=== PATIENT | female | born 1940 | race Caucasian/White ===

== ENCOUNTER → 2016-11-26 | Outpatient (CLI) | payer MEDICARE, OTHER ==
--- NOTE | 2016-11-26 11:36 | KCIC ---
PROCEDURE MR of the left knee HISTORY Left knee pain. Stiffness. Swelling. Symptoms for a few months. TECHNIQUE Routine multiplanar sequences are obtained. COMPARISON None FINDINGS Degenerative tear of the medial meniscus. Mild subluxation of the medial meniscus from the medial joint compartment. Degenerative tear of the lateral meniscus Anterior and posterior cruciate ligaments are intact. Medial collateral ligament intact. Iliotibial band unremarkable. Fibular collateral ligament, biceps femoris tendon and popliteus tendon are intact. Extensor mechanism is intact. Large joint effusion. No evidence of osteochondral loose body. 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 Mild lateral compartment chondromalacia. Patellofemoral articular cartilage appears intact. Focal full-thickness articular cartilage defect at the posterior medial femoral condyle measures 7 millimeters AP by 7 millimeters wide. Small low signal structure identified in the posterior intercondylar notch. This is less well-defined and demonstrates more intermediate signal than would be expected for a loose cartilage fragment or loose body, but that is still considered. Minimal subchondral marrow edema at the central femoral trochlea. No acute fracture or aggressive bone destruction. Mild soft tissue edema or contusion around the knee. IMPRESSION 1. Medial meniscal tear. 2. Lateral meniscal tear. 3. Small full-thickness articular cartilage defect at the posterior medial femoral condyle. Small structure identified in the posterior intercondylar notch, possibly a displaced loose cartilage fragment or body, but not certain. Electronically signed by: Valdez Holman MD (November 26, 2016 11:35:23)
== END | disposition home or self-care (01) ==
LOC: KCIC MRI 08:22
PROVIDERS: ATTEND Family Medicine
DX: M25.562 Pain in left knee (principal)
CPT/HCPCS: 73721

== ENCOUNTER → 2017-01-04 | Day surgery (SDC) | payer MEDICARE, OTHER ==
[~2017-01-04] VITALS: Ht 157.5 cm; Wt 54.0 kg
[~2017-01-04] MED LIST: ANAS1TAB3 PO; BUPIVACAINE 0.5% 50 ML VIAL. ONE; CALC500T30 PO; CHOL500016 PO; DEXAMETHASONE SOD PHOS 20 MG/5 ML VIAL. ONE; FAMOTIDINE 20 MG/2 ML VIAL ONE; GLUC1TAB33 PO; HYDR-965 PO; HYDROmorphone 2 MG/ML VIAL IV PRN; IV RINGERS,LACTATED 1000ML 1,000 ML IV SCH; LIDOCAINE 1% 1 ML SYRINGE. ID PRN; LIDOCAINE 2% PF Vial for OR 5 ML VIAL. ONE; MIDAZOLAM HCL/PF 2 MG/2 ML VIAL. ONE; MONT10TA6 PO; MORPHINE SULFATE 2 MG/ML DISP.SYRIN. IV PRN; MULT-460 PO; ONDANSETRON PF 4 MG/2 ML VIAL. IV PRN; ONDANSETRON PF 4 MG/2 ML VIAL. ONE; PROCHLORPERAZINE 10 MG/2 ML VIAL. IV PRN; PROPOFOL 20 ML IV ONE; SEVOFLURANE 31 TO 60 MINUTES. IH ONE; TRIA15OI9 TP; fentaNYL PF VIAL 100 MCG/2 ML VIAL IV PRN; fentaNYL PF VIAL 100 MCG/2 ML VIAL ONE
[2017-01-04 13:24] LABS: BASO % 0 % (0-3); EOS % 2 % (0-3); HEMATOCRIT 39.3 % (36.0-47.0); HEMOGLOBIN 13.3 g/dL (12.0-15.5); LYMPH # 1.5 x10^3/uL (1.0-4.8); LYMPH % 32 % (24-48); MEAN CORPUSCULAR HEMOGLOBIN 30 pg (25-35); MEAN CORPUSCULAR HGB CONC 34 g/dL (31-37); MEAN CORPUSCULAR VOLUME 88 fL (79-100); MONO % 9 % (0-9); NEUT % 57 % (31-73); PLATELET COUNT 181 x10^3/uL (140-400); RED BLOOD COUNT 4.46 x10^6/uL (3.50-5.40); RED CELL DISTRIBUTION WIDTH 13.4 % (11.5-14.5); WHITE BLOOD COUNT 4.8 x10^3/uL (4.0-11.0)
--- NOTE | 2017-01-04 14:28 | DISCH ---
DISCHARGE INSTRUCTIONS Condition on Discharge Condition on Discharge: Stable Activity After Discharge Activity Instructions for Disc: Other, see below Other activity instructions: advance activity as tolerated Weight Bearing Status after Di: As tolerated Diet after Discharge Diet after Discharge: Regular Wound Incision Care Wound/Incision Care: Ice to area for comfort, Keep wound elevated, Change dressing Other wound/incision instructi: remove dressing in 2 days may then shower Contacting the DR. after DC Call your doctor for: Concerns you may have Follow-Up Follow up with: Aileen 10-14 days TASHI NAIDU MD Jan 04, 2017 14:28
[2017-01-04 16:23] VITALS: BP 108/76
--- NOTE | 2017-01-05 10:01 | OP ---
DATE OF SURGERY: 01/04/2017 PREOPERATIVE DIAGNOSIS: Medial and lateral meniscal tears. POSTOPERATIVE DIAGNOSIS: Medial and lateral meniscal tears. PROCEDURE: Knee arthroscopy, partial medial and lateral meniscectomies. SURGEON: Zan Gallagher M.D. ANESTHESIA: General. ESTIMATED BLOOD LOSS: 5 mL. COMPLICATIONS: None. OPERATIVE INDICATIONS: The patient is a 76-year-old female, otherwise very active, was having pain, swelling and mechanical symptoms in her left knee that had been going on for some time, unresponsive to nonoperative treatment. MRI confirmed clinical suspicion of medial and lateral meniscal tears. I had gone over with her the typical arthroscopic treatment of this, additional nonoperative treatment options, but she the inability to deal with any degenerative changes present in the knee and therefore the possibility of continued pain due to any wear and tear that would have to be dealt with symptomatically. All of her questions were answered. She agrees to proceed with operative evaluation and treatment. DESCRIPTION OF PROCEDURE: The patient was identified, procedure verified, patient placed in the supine position on the operating table. After adequate amounts of general anesthesia were administered, a thigh tourniquet was placed, and the left lower extremity was prepped and draped in standard sterile fashion. After timeout was performed, the patient and procedure identified and verified, left lower extremity was exsanguinated by Esmarch bandage. Tourniquet inflated to 250 mmHg. Lateral portal was established, medial portal established using spinal needle localization and the knee joint was systematically examined. She was found to have displaceable tear in the posterior horn and body area of the medial meniscus which was trimmed back to stable tissue and radiused using arthroscopic punch and shaver. ACL was probed and found to be intact. She had some minimal chondromalacia of the patellofemoral joint, medial compartment. Lateral compartment was well preserved except that she did have tears of the lateral meniscus involving the posterior horn and body and anterior horn area. The meniscus was debrided circumferentially with arthroscopic punch and shaver back to a stable ramus tissue. Any fragments were removed with arthroscopic shaver. The knee was toured to make sure no fragments or loose bodies were retained. Knee was drained of arthroscopic fluid. Portals closed with nylon suture. Sterile dressings were applied. The patient was extubated and transferred to postop holding in stable condition having tolerated the procedure well. ZAN GALLAGHER MD DR: TERRY/mikayla JOB#: [id number] / [id number] SHANNON Arreola APRN
== END | disposition home or self-care (01) ==
LOC: SURG 11:56
PROVIDERS: ATTEND Orthopaedic Surgery
DX: S83.282A Other tear of lateral meniscus, current injury, left knee, initial encounter (principal); S83.242A Other tear of medial meniscus, current injury, left knee, initial encounter; X58.XXXA Exposure to other specified factors, initial encounter; Y93.89 Activity, other specified; Y92.89 Other specified places as the place of occurrence of the external cause; Y99.9 Unspecified external cause status; M19.90 Unspecified osteoarthritis, unspecified site; F17.200 Nicotine dependence, unspecified, uncomplicated
CPT/HCPCS: 29880; 36415; 85027; J0690; J1100; J2250; J2405; J2704; J3010; J3490; S0028